=== PATIENT | female | born 2000 | race African-American/Black ===

== ENCOUNTER 2022-12-10 13:07 | Emergency (ER) | payer OTHER ==
--- NOTE | 2022-12-10 13:46 | ED Physician Documentation ---
History of Present Illness - Stated complaint Stated Complaint: CHEST/STOMACH PX - Chief complaint Chief Complaint: General - History obtained from History obtained from: Patient - Additonal information Additional information: This is a 22-year-old female who is approximately 2 to 3 weeks who presents with upper abdominal and chest pain. Symptoms have been occurring intermittently over the course of the last couple weeks but frequently throughout the day. The patient does state that she has a history of anxiety and is not currently on any medication, but this feels different and anxiety to her. She has not had any fever or chills, no cough or URI symptoms, no wheezing or difficulty breathing, no abdominal pain nausea vomiting or diarrhea, no dysuria urgency or frequency, she does not have any vaginal bleeding. She has not been able to establish care yet, recently moved to the area and does not have a doctor. Patient states that the was unexpected and she is quite anxious and nervous about it. She is with the father of the baby and he is supportive. Review of Systems Constitutional: reports: Reviewed and negative Eyes: reports: Reviewed and negative Ears: reports: Reviewed and negative Nose: reports: Reviewed and negative Throat: reports: Reviewed and negative Cardiac: reports: Chest pain / pressure. denies: Palpitations, Pedal edema, Calf pain Respiratory: reports: Reviewed and negative GI: reports: Reviewed and negative : reports: Reviewed and negative, Other (Patient is ) Skin: reports: Reviewed and negative Musculoskeletal: reports: Reviewed and negative Neurologic: reports: Reviewed and negative Psychiatric: reports: Reviewed and negative PD PAST MEDICAL HISTORY - Past Medical History Past Medical History: Yes WE[employer] DIGGER: Endometriosis Psych: Anxiety - Present Medications Home Medications: Ambulatory Orders Medication Instructions Recorded Confirmed Ferrous Sulfate [Feosol] 325 mg PO DAILY #90 tablet 12/10/22 Pnv,Calcium 72/Iron,Carb/Folic 1 each PO DAILY #180 tablet 12/10/22 [ Plus Iron Tablet] - Allergies Allergies/Adverse Reactions: Allergies Allergy/AdvReac Type Severity Reaction Status Date / Time No Known Drug Allergies Allergy Verified 12/10/22 13:12 PD ED PE NORMAL - Vitals Vital signs reviewed: Yes - General General: Alert and oriented X 3, No acute distress, Well developed/nourished - HEENT HEENT: Atraumatic, Pharynx benign - Neck Neck: Supple, no meningeal sign, No JVD - Cardiac Cardiac: RRR, No murmur, No gallop, No rub - Respiratory Respiratory: No respiratory distress, Clear bilaterally - Abdomen Abdomen: Normal bowel sounds, Soft, Non tender, Non distended - Derm Derm: Normal color, Warm and dry - Extremities Extremities: No deformity, No tenderness to palpate, Normal ROM s pain - Neuro Neuro: Alert and oriented X 3 Eye Opening: Spontaneous Motor: Obeys Commands Verbal: Oriented GCS Score: 15 - Psych Psych: Normal mood, Normal affect Results - Vitals Vitals: Vital Signs - 24 hr 12/10/22 13:12 Temperature 36.5 C Heart Rate 78 Respiratory 16 Rate Blood Pressure 124/75 O2 Saturation 100 Oxygen O2 Source Room air - EKG (time done) No standard instances EKG releavant findings:: EKG personally interpreted by author of this note. Relevant findings are: Rate: Rate (enter#) (78) Rhythm: NSR Ovid: Normal Intervals: Normal OK Ischemia: Normal ST segments, Non specific changes Compare to prior EKG: Old EKG unavailable Computer interpretation: Agree with computer - Labs Labs: Laboratory Tests 12/10/22 12/10/22 12/10/22 13:36 13:36 13:36 WBC 6.0 RBC 4.32 Hgb 9.4 L Hct 31.5 L MCV 72.9 L MCH 21.8 L MCHC 29.8 L RDW 18.3 H Plt Count 325 MPV 10.2 Neut # (Auto) 3.9 Lymph # (Auto) 1.5 [place] # (Auto) 0.6 Eos # (Auto) 0.0 Baso # (Auto) 0.0 Absolute Nucleated RBC 0.00 Nucleated RBC % 0.0 Sodium 137 Potassium 3.7 Chloride 107 Carbon Dioxide 23 Anion Gap 7.0 BUN 9 Creatinine 0.5 Estimated GFR (MDRD) 184 Glucose 89 Calcium 9.0 Iron TIBC % Saturation Transferrin Total Bilirubin 0.5 AST 24 ALT 16 Alkaline Phosphatase 34 L Troponin I High Sens Total Protein 7.3 Albumin 4.0 Globulin 3.3 Albumin/Globulin Ratio 1.2 Lipase 28 HCG, Quant 03125.00 12/10/22 12/10/22 13:36 13:36 WBC RBC Hgb Hct MCV MCH MCHC RDW Plt Count MPV Neut # (Auto) Lymph # (Auto) [place] # (Auto) Eos # (Auto) Baso # (Auto) Absolute Nucleated RBC Nucleated RBC % Sodium Potassium Chloride Carbon Dioxide Anion Gap BUN Creatinine Estimated GFR (MDRD) Glucose Calcium Iron 19 L TIBC 470 H % Saturation 4 L Transferrin 336 Total Bilirubin AST ALT Alkaline Phosphatase Troponin I High Sens < 2.3 L Total Protein Albumin Globulin Albumin/Globulin Ratio Lipase HCG, Quant PD Medical Decision Making - ED course Complexity details: reviewed results, re-evaluated patient, considered differential, d/w patient ED course: This is a 22-year-old female who is 2 to 3 months who presented with chest pain. Chest pain is atypical, nonexertional. She has no signs of pneumonia, pneumothorax or lung disease. Her EKG is nonischemic. Her labs reveal And iron deficiency anemia but are otherwise stable, her troponin is negative. Her hCG is appropriately elevated. Her EKG shows no acute ischemic changes and her chest x-ray is reassuring without pneumonia or pneumothorax. I suspect patient's symptoms today are combination of anxiety as well as her iron deficiency anemia. I have low suspicion for ACS or PE at this time given reassuring lab and her physical exam, vital signs and risk factors. I have encouraged her to start a vitamin with folic acid And iron, which she has not been taking yet, and she will also Need additional iron another 1 or 2 times a day if tolerated. It was urged to establish care soon as possible, she was given information to call the [facility] women[facility] health clinic on Sunday for an appointment. Departure - Departure Disposition: Home, Self Care Clinical Impression: Atypical chest pain, First trimester , Iron deficiency anemia during Condition: Good Instructions: Anemia, ED Chest Pain NonCardiac, ED Care Follow-Up: [facility] [Provider Group] Prescriptions: Ferrous Sulfate [Feosol] 325 mg PO DAILY #90 tablet Pnv,Calcium 72/Iron,Carb/Folic [ Plus Iron Tablet] 1 each PO DAILY #180 tablet Comments: Please establish care with a women's health provider within the next week or so for care. You have a significant iron deficiency anemia and I recommend that you start iron supplementation in addition to a vitamin with iron in it. Please call on Sunday to schedule a follow-up with [facility] as this can worsen during and will need to be monitored. They will also do routine care and monitoring. The anemia can cause fatigue and shortness of breath, heart palpitations, dizziness. The remainder of your labs are stable and there is no sign of any cardiac injury on labs toalexander sexton.
[2022-12-10 13:51] LABS: BASOPHILS % (AUTO) 0.5 %; EOSINOPHILS % (AUTO) 0.2 %; HCT - HEMATOCRIT 31.5 % (37.0-47.0); HGB - HEMOGLOBIN 9.4 g/dL (12.0-16.0); LYMPHOCYTES # (AUTO) 1.5 10^3/uL (1.5-3.5); LYMPHOCYTES % (AUTO) 25.4 %; MEAN CORPUSCULAR HEMOGLOBIN 21.8 pg (27.0-31.0); MEAN CORPUSCULAR HGB CONC 29.8 g/dL (32.0-36.0); MEAN CORPUSCULAR VOLUME 72.9 fL (81.0-99.0); MEAN PLATELET VOLUME 10.2 fL (7.9-10.8); MONOCYTES # (AUTO) 0.6 10^3/uL (0.0-1.0); MONOCYTES % (AUTO) 9.1 %; NEUTROPHILS # (AUTO) 3.9 10^3/uL (1.5-6.6); NEUTROPHILS % (AUTO) 64.6 %; PLT - PLATELET COUNT 325 10^3/uL (130-450); RED BLOOD COUNT 4.32 10^6/uL (4.20-5.40); RED CELL DISTRIBUTION WIDTH 18.3 % (12.0-15.0)
[2022-12-10 14:02] LABS: ALBUMIN/GLOBULIN RATIO 1.2 (1.0-2.2); BILIRUBIN,TOTAL 0.5 mg/dL (0.2-1.0); CREATININE 0.5 mg/dL (0.4-1.0); POTASSIUM 3.7 mmol/L (3.5-5.0); TOTAL PROTEIN 7.3 g/dL (6.7-8.2)
[2022-12-10 14:50] LABS: % IRON SATURATION 4 % (20-50); IRON 19 ug/dL (28-170); TOTAL IRON BINDING CAPACITY 470 ug/dL (250-450); TRANSFERRIN 336 mg/dL (192-382)
--- NOTE | 2022-12-10 14:58 | XRAY Report ---
PROCEDURE: Chest 1 View X-Ray INDICATIONS: chest pain TECHNIQUE: One view of the chest was acquired. COMPARISON: None. FINDINGS: Surgical changes and devices: None. Lungs and pleura: No pleural effusions or pneumothorax. Lungs are clear. Mediastinum: Mediastinal contours appear normal. Heart size is normal. Bones and chest wall: No suspicious bony lesions. Overlying soft tissues appear unremarkable. IMPRESSION: No acute cardiopulmonary process. Reviewed by: Raghav Koenig MD on 12/10/2022 1:57 PM AKDT Approved by: Raghav Koenig MD on 12/10/2022 1:57 PM AKDT Station ID: [id number]
[2022-12-10 15:13] VITALS: BP 122/77
== END 2022-12-10 15:12 | disposition home or self-care (01) ==
LOC: ED 13:07
DX: O99.891 Other specified diseases and conditions complicating pregnancy (principal); R07.89 Other chest pain; O99.111 Other diseases of the blood and blood-forming organs and certain disorders involving the immune mechanism complicating pregnancy, first trimester; D50.9 Iron deficiency anemia, unspecified; Z3A.00 Weeks of gestation of pregnancy not specified
CPT/HCPCS: 36415; 80053; 83540; 83690; 84466; 84484; 84702; 85025; 93005; 99284

== ENCOUNTER 2022-12-24 17:30 | Emergency (ER) | payer OTHER ==
[2022-12-24] MEDS ORDERED: ONDANSETRON ODT 4 MG TABLET TL ONE (18:18)
[2022-12-24] MEDS ORDERED: oxyCODONE 5 MG TABLET PO ONE (18:18)
--- NOTE | 2022-12-24 18:20 | ED Physician Documentation ---
History of Present Illness - Stated complaint Stated Complaint: ABD CRAMPING - Chief complaint Chief Complaint: Abd Pain - History obtained from History obtained from: Patient - History of Present Illness Timing: Today Pain level max: 8 Pain level now: 8 - Additonal information Additional information: 22-year-old female states that she took misoprostol for an earlier today. She has had cramping and bleeding since that time. Pain unrelieved with Motrin. Vomited x1. Nothing makes it better or worse. She states that she normally has painful menses. No fevers. No chills. No chest pain. No shortness of breath. Review of Systems Constitutional: denies: Fever, Chills Cardiac: denies: Chest pain / pressure Respiratory: denies: Cough GI: reports: Nausea. denies: Diarrhea Skin: denies: Rash Musculoskeletal: denies: Neck pain, Back pain Neurologic: denies: Headache PD PAST MEDICAL HISTORY - Past Medical History Past Medical History: Yes [employer]: Endometriosis Psych: Anxiety - Present Medications Home Medications: Ambulatory Orders Medication Instructions Recorded Confirmed Ferrous Sulfate [Feosol] 325 mg PO DAILY #90 tablet 12/10/22 12/24/22 Ibuprofen [Motrin] 1 tablet PO Q8H PRN 12/24/22 12/24/22 Ondansetron Odt [Zofran Odt] 4 mg TL Q6H PRN 12/24/22 12/24/22 - Allergies Allergies/Adverse Reactions: Allergies Allergy/AdvReac Type Severity Reaction Status Date / Time No Known Drug Allergies Allergy Verified 12/24/22 17:33 PD ED PE NORMAL - Vitals Vital signs reviewed: Yes - General General: Alert and oriented X 3, No acute distress, Well developed/nourished - HEENT HEENT: PERRL, Moist mucous membranes - Neck Neck: Supple, no meningeal sign - Cardiac Cardiac: RRR, Strong equal pulses - Respiratory Respiratory: No respiratory distress, Clear bilaterally - Abdomen Abdomen: Soft, Non distended, Other (Mild tenderness palpation suprapubic. No peritoneal signs) - Back Back: No CVA TTP, No spinal TTP - Derm Derm: Warm and dry - Extremities Extremities: No edema - Neuro Neuro: Alert and oriented X 3 - Psych Psych: Normal mood, Normal affect Results - Vitals Vitals: Vital Signs - 24 hr 12/24/22 12/24/22 17:33 19:48 Temperature 36.8 C Heart Rate 69 71 Respiratory 20 15 Rate Blood Pressure 118/64 117/64 O2 Saturation 100 99 Oxygen O2 Source Room air PD Medical Decision Making - ED course Complexity details: reviewed results, re-evaluated patient, considered differential, d/w patient ED course: Bedside ultrasound reveals a uterus with heterogeneous blood flow in the endometrial canal. Patient is well-appearing, nontoxic. Afebrile. Given pain medication and pain well controlled. Tolerating p.o. without difficulty. We will place on pain medication for home. We will have her follow-up closely with her doctor to ensure completion of the . Patient counseled regarding signs and symptoms for which I believe and urgent re-evaluation would be necessary. Patient with good understanding of and agreement to plan and is comfortable going home at this time This document was made in part using voice recognition software. While efforts are made to proofread this document, sound alike and grammatical errors may occur. Departure - Departure Disposition: 01 Home, Self Care Clinical Impression: Adverse effect of misoprostol, Pelvic cramping Condition: Good Instructions: Misoprostol tablets Follow-Up: your,doctor in 1 week [Other] Comments: Please follow-up with your doctor as needed for further care. You were given oxycodone tonight. We have given you pills to go home with tonight. You can use heating pads as well. The cramping should improve in the next 12 to 24 hours. I am prescribing a short course of narcotic pain medication for you. These are potentially dangerous and addictive medications that should be used carefully. These medications may constipate you. Take an [id number] stool softener (docusate) twice daily with plenty of water while taking these medications. If you go 24 hours without a bowel movement, take [id number] miralax, per package instructions. Do not drink or drive while taking these medications. If you received narcotic or sedating medications while in the emergency department, do not drive for 24 hours. Store this medication in a safe, secure place and out of reach of children. It is a violation of federal law to give or sell this medication to another person or to use in a manner other than prescribed. The ED will not refill narcotic prescriptions, including prescriptions lost or stolen. To dispose of unwanted medications: 1. [facility] at [address] in [place] has a medication drop box. They accept prescription medications (in pill form) Sunday through Sunday 9:00 a.m. to 5:00 p.m. 2. The [facility] [employer] accepts prescription medications (in pill form only) for disposal year round. Call for more information. 3. Contact the [facility] for the next [facility] sponsored prescription drug collection event. , [phone], or [phone]; Discharge Date/Time: 12/24/22 19:48
[2022-12-24] MEDS ORDERED: oxyCODONE/ACET 5/325 Prepack 4 PO ONE (18:56)
[2022-12-24 19:49] VITALS: BP 117/64
== END 2022-12-24 19:48 | disposition home or self-care (01) ==
LOC: ED 17:30
DX: R10.2 Pelvic and perineal pain (principal); T47.1X5A Adverse effect of other antacids and anti-gastric-secretion drugs, initial encounter
CPT/HCPCS: 99282; 99283; A9270; Q0162